=== PATIENT | female | born 1940 | race Caucasian/White ===

== ENCOUNTER 2016-12-16 10:04 | Outpatient (CLI) | payer OTHER ==
[~2016-12-16 10:04] MED LIST: ALBUTEROL HFA60 DOSE IN; AMITRIPTYLINE H25 MG PO; AMLODIPINE BESYL5 MG PO; ASPIRIN325 MG PO; KLOR-CON 1010 MEQ PO; LASIX20 MG PO; LEVAQUIN500 MG PO; LEVOTHYROXINE100 MCG PO; LISINOPRIL10 MG PO; LOPRESSOR25 MG PO; MICRO-K 10 EQU10 MEQ PO; TOPROL XL50 MG PO
--- NOTE | 2016-12-16 12:49 | DIAGNOSTIC IMAGING REPORT ---
PROCEDURE: US ART UPPER EXT DOPPLER-BILAT INDICATION: CYANOSIS TECHNIQUE: Color Doppler duplex imaging of the lower extremities was performed. COMPARISON: None. FINDINGS: RIGHT UPPER EXTREMITY: VESSELS: Calcific atherosclerosis of the right axillary artery. RIGHT LOWER EXTREMITY PEAK SYSTOLIC VELOCITIES: Common carotid artery: 79 cm/sec, biphasic Subclavian artery: 66 cm/sec, triphasic Axillary:67 cm/sec, biphasic Brachial: 130 cm/sec, biphasic Radial: 70 cm/sec, biphasic Ulnar: 63 cm/sec, triphasic LEFT UPPER EXTREMITY: VESSELS: Calcific atherosclerosis of the left axillary melody LEFT LOWER EXTREMITY PEAK SYSTOLIC VELOCITIES: Common carotid: 89 cm, monophasic Subclavian: 105 cm/sec, biphasic Axillary: 63 cm, biphasic Brachial: 118 cm/sec, biphasic Radial: 44 cm/sec, biphasic Ulnar: 49 cm/sec, biphasic. IMPRESSION: 1. 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 Right brachial artery peak systolic velocity suggestive of stenosis just less than 50%
== END 2016-12-16 23:00 ==
LOC: US SRH 10:04
DX: I70.208 Unspecified atherosclerosis of native arteries of extremities, other extremity (principal)